=== PATIENT | male | born 1965 | race Caucasian/White ===

== ENCOUNTER 2018-10-31 22:11 | Emergency (ER) | payer SELFPAY ==
[~2018-10-31] VITALS: Ht 167.6 cm; Wt 125.0 kg
[2018-10-31 22:59] LABS: BASOPHILS # (AUTO) 0.1 X10'3 (0-0.2); BASOPHILS % (AUTO) 0.6 % (0-1); EOSINOPHILS # (AUTO) 0.1 X10'3 (0-0.9); EOSINOPHILS % (AUTO) 1.1 % (0-6); HEMATOCRIT 48.5 % (42.0-52.0); HEMOGLOBIN 17.1 g/dl (14.0-17.9); LYMPHOCYTES # (AUTO) 1.7 X10'3 (1.1-4.8); LYMPHOCYTES % (AUTO) 18.1 % (21-51); MEAN CORPUSCULAR HEMOGLOBIN 33.4 PG (27.0-31.0); MEAN CORPUSCULAR HGB CONC 35.3 g/dL (33.0-36.5); MEAN CORPUSCULAR VOLUME 94.6 FL (78-98); MEAN PLATELET VOLUME 8.5 FL (7.4-10.4); MONOCYTES # (AUTO) 0.9 X10'3 (0-0.9); MONOCYTES % (AUTO) 9.4 % (2-12); NEUTROPHILS # (AUTO) 6.8 X10'3 (1.8-7.7); NEUTROPHILS % (AUTO) 70.8 % (42-75); PLATELET COUNT 178 X10'3 (140-440); RED BLOOD COUNT 5.12 X10'6 (4.70-6.10); RED CELL DISTRIBUTION WIDTH 13.4 % (11.5-14.5); WHITE BLOOD COUNT 9.6 X10'3 (4.5-11.0)
[2018-10-31 23:15] LABS: ALANINE AMINOTRANSFERASE 41 U/L (12-78); ALBUMIN 3.6 G/DL (3.4-5.0); ALKALINE PHOSPHATASE 54 IU/L (46-116); ANION GAP 9 (8-16); ASPARTATE AMINO TRANSFERASE 22 U/L (10-37); BILIRUBIN,TOTAL 0.8 MG/DL (0.1-1.0); BLOOD UREA NITROGEN 13 MG/DL (7-18); BUN/CREATININE RATIO 13.8 (5.4-32.0); CALCIUM 9.2 MG/DL (8.5-10.1); CHLORIDE 105 MMOL/L (99-107); CREATININE 0.94 MG/DL (0.60-1.10); GLUCOSE 97 MG/DL (70-104); POTASSIUM 3.9 MMOL/L (3.5-5.1); SODIUM 140 MMOL/L (135-145); TOTAL CARBON DIOXIDE 26.5 MMOL/L (24-32); TOTAL PROTEIN 7.1 G/DL (6.4-8.2); eGFR 83 ML/MIN
--- NOTE | 2018-10-31 23:26 | NUR ---
No number on file to follow up with Pt. Dr. Rasmussen informed.
[2018-11-01] MEDS ORDERED: acetaminophen 325mg tablet PO ONE (01:15)
[2018-11-01] MEDS ORDERED: ketorolac trometh inj. 60 MG/2 ML VIAL IM ONE (01:15)
[2018-11-01 01:29] LABS: LIPASE 141 U/L (73-393)
[2018-11-01 01:43] VITALS: BP 145/80
[2018-11-01 02:03] LABS: CLARITY,URINE CLEAR (Clear); COLOR,URINE YELLOW (Yellow); GLUCOSE, URINE NEGATIVE (Neg); KETONES,URINE 40 mg/dl (Neg); LEUKOCYTE ESTERASE ,URINE NEGATIVE (Neg); NITRITES, URINE NEGATIVE (Neg); OCCULT BLOOD,URINE TRACE-INTACT (Neg); PROTEIN,URINE NEGATIVE (Neg); UROBILINOGEN,URINE 0.2 E.U/dL (0.2-1.0)
[2018-11-01 02:05] LABS: UA COLLECTION TYPE VOIDED
[2018-11-01 02:11] LABS: BACTERIA,URINE NONE SEEN /HPF (Neg); RBC,URINE 0-2 /HPF (0-2); SQUAMOUS EPITHELIAL CELL,UR FEW /LPF (FEW); WBC,URINE NONE SEEN /HPF (0-4)
== END 2018-11-01 02:40 | disposition home or self-care (01) ==
LOC: ER 22:12
DX: R10.32 Left lower quadrant pain (principal); R19.7 Diarrhea, unspecified; Z87.442 Personal history of urinary calculi
CPT/HCPCS: 36415; 80053; 81001; 83690; 85025; 85610; 96372; 99283; J1885

== ENCOUNTER 2018-11-04 10:36 | Inpatient (IN) | payer SELFPAY ==
[~2018-11-04] VITALS: Ht 167.6 cm; Wt 125.0 kg
[2018-11-04] MEDS ORDERED: ondansetron/PF 4mg/2ml inj IV ONE (10:40)
[2018-11-04] MEDS ORDERED: normal saline 1000ML IV soln IVB ONE (10:40)
[2018-11-04] MEDS: morphine 4 MG/ML inj SYRINge IV PRN ×2 (11:35→12:06)
[2018-11-04 11:52] LABS: ALANINE AMINOTRANSFERASE 35 U/L (12-78); ALBUMIN/GLOBULIN RATIO 0.6 (1.1-1.5); ALKALINE PHOSPHATASE 59 IU/L (46-116); ANION GAP 11 (8-16); ASPARTATE AMINO TRANSFERASE 15 U/L (10-37); BILIRUBIN,TOTAL 1.1 MG/DL (0.1-1.0); BLOOD UREA NITROGEN 10 MG/DL (7-18); BUN/CREATININE RATIO 11.4 (5.4-32.0); CALCIUM 9.1 MG/DL (8.5-10.1); CHLORIDE 102 MMOL/L (99-107); CREATININE 0.88 MG/DL (0.60-1.10); GLUCOSE 121 MG/DL (70-104); LIPASE 67 U/L (73-393); POTASSIUM 3.8 MMOL/L (3.5-5.1); SODIUM 141 MMOL/L (135-145); TOTAL CARBON DIOXIDE 27.9 MMOL/L (24-32); TOTAL PROTEIN 7.7 G/DL (6.4-8.2); eGFR 90 ML/MIN
[2018-11-04 12:01] LABS: BASOPHILS % (AUTO) 0.3 % (0-1); EOSINOPHILS # (AUTO) 0.1 X10'3 (0-0.9); EOSINOPHILS % (AUTO) 0.6 % (0-6); HEMATOCRIT 47.4 % (42.0-52.0); HEMOGLOBIN 16.7 g/dl (14.0-17.9); LYMPHOCYTES # (AUTO) 0.9 X10'3 (1.1-4.8); LYMPHOCYTES % (AUTO) 10.6 % (21-51); MEAN CORPUSCULAR HEMOGLOBIN 33.5 PG (27.0-31.0); MEAN CORPUSCULAR HGB CONC 35.2 g/dL (33.0-36.5); MEAN CORPUSCULAR VOLUME 95.2 FL (78-98); MEAN PLATELET VOLUME 8.5 FL (7.4-10.4); MONOCYTES # (AUTO) 0.6 X10'3 (0-0.9); MONOCYTES % (AUTO) 6.5 % (2-12); NEUTROPHILS # (AUTO) 7.3 X10'3 (1.8-7.7); PLATELET COUNT 208 X10'3 (140-440); RED BLOOD COUNT 4.98 X10'6 (4.70-6.10); WHITE BLOOD COUNT 8.9 X10'3 (4.5-11.0)
[2018-11-04] MEDS ORDERED: piperacillin/tazo 3.375gm/50ml 50 ML IV ONE (12:30)
--- NOTE | 2018-11-04 12:35 | NUR ---
PROVIDER AT BEDSIDE, DISCUSSING OPTIONS WITH PT
--- NOTE | 2018-11-04 13:01 | NUR ---
HOSPITALIST AT BEDSIDE
[2018-11-04 14:10] LABS: CLARITY,URINE CLEAR (Clear); COLOR,URINE YELLOW (Yellow); GLUCOSE, URINE NEGATIVE (Neg); KETONES,URINE >=80 mg/dl (Neg); LEUKOCYTE ESTERASE ,URINE NEGATIVE (Neg); NITRITES, URINE NEGATIVE (Neg); OCCULT BLOOD,URINE MODERATE (Neg); PH,URINE 5.5 (4.8-8.0); PROTEIN,URINE 100 mg/dl (Neg); UROBILINOGEN,URINE 0.2 E.U/dL (0.2-1.0)
[2018-11-04 14:12] LABS: UA COLLECTION TYPE CLN CATCH MIDSTREAM
[2018-11-04] MEDS ORDERED: magnesium 4gm in 100ml NS 100 ML IV PRN (14:35)
[2018-11-04] MEDS: K and/or MAG REPLACEMENT MC SCH (14:35)
[2018-11-04] MEDS ORDERED: HYDROcodone/acetaminophen 5mg/325mg tablet PO PRN (14:35)
[2018-11-04] MEDS ORDERED: mag hydrox/Alum hydrox/simeth 30ml oral suspension PO PRN (14:35)
[2018-11-04] MEDS ORDERED: potassium Cl 20 mEq SR tablet PO PRN ×2 (14:35)
[2018-11-04] MEDS ORDERED: diphenhydrAMINE 25mg capsule PO PRN (14:35)
[2018-11-04] MEDS ORDERED: morphine 2 MG/ML inj. syringe IV PRN (14:35)
[2018-11-04] MEDS ORDERED: magnesium 2GM in 50ml NS 50 ML IV PRN (14:35)
[2018-11-04] MEDS ORDERED: potassium CL 10mEq/100ml bag 100 ML IV PRN ×2 (14:35)
[2018-11-04] MEDS ORDERED: acetaminophen 325mg tablet PO PRN (14:35)
[2018-11-04] MEDS ORDERED: magnesium Cl slow-release 64mg tablet PO PRN (14:35)
[2018-11-04] MEDS ORDERED: magnesium hydroxide 30ml (MOM) UD suspension PO PRN (14:35)
[2018-11-04] MEDS ORDERED: ondansetron/PF 4mg/2ml inj IV PRN (14:35)
[2018-11-04 14:36] LABS: MUCUS STRANDS MANY /LPF (Neg)
[2018-11-04 14:37] LABS: COARSE GRANULAR CAST 0-3 /LPF (NEGATIVE); SQUAMOUS EPITHELIAL CELL,UR FEW /LPF (FEW)
[2018-11-04 14:38] LABS: AMORPHOUS URATES 1+
[2018-11-04 14:53] LABS: BACTERIA,URINE 1+ /HPF (Neg); RBC,URINE 0-2 /HPF (0-2); WBC,URINE 0-4 /HPF (0-4)
[2018-11-04] MEDS: normal saline 1000ml 1,000 ML IV SCH (15:00)
[2018-11-04 15:26] LABS: HEMOGLOBIN A1C 4.9 % (4.5-6.2)
[2018-11-04] MEDS ORDERED: fentaNYL/PF 50MCG/1 ML 2ML syringe ONE (15:43)
--- NOTE | 2018-11-04 15:55 | NUR ---
PATIENT TO ANGIO.
[2018-11-04 15:58] VITALS: BP 147/73
[2018-11-04 16:03] VITALS: BP 150/79
[2018-11-04 16:08] VITALS: BP 151/79
[2018-11-04 16:13] VITALS: BP 149/79
[2018-11-04 16:18] VITALS: BP 109/89
--- NOTE | 2018-11-04 16:34 | NUR ---
PATIENT BACK TO BED 7,LESLIE DRAIN TO LEFT ABDOMEN,WAS GIVEN FENTANYL 50MCG.
[2018-11-04] MEDS: piperacillin/tazo 3.375gm/50ml 50 ML IV SCH ×2 (16:44→23:17)
[2018-11-04] MEDS ORDERED: NO HOME MEDS (16:50)
--- NOTE | 2018-11-04 17:40 | NUR ---
paged Dr. Cross,patient tachy 120's,pt denies chest pain,sumeet drain intact,no noted output from the drain.
--- NOTE | 2018-11-04 17:54 | NUR ---
ekg done,sinus tachy,dr. leos read result.
[2018-11-04 19:00] VITALS: BP 137/97
[2018-11-04] MEDS: morphine 2 MG/ML inj. syringe IV PRN (19:52)
--- NOTE | 2018-11-04 20:58 | NUR ---
[place] [phone] Yoni [phone] only two number pt can recall. pt is concerned and a worked up about not getting ahold of family. called both numbers and no response. will continue to monitor.
[2018-11-04] MEDS ORDERED: temazepam 15mg capsule PO PRN (21:00)
[2018-11-05] VITALS: BP 118/71
[2018-11-05] MEDS: normal saline 1000ml 1,000 ML IV SCH ×3 (04:13→15:25)
[2018-11-05 06:08] LABS: BASOPHILS % (AUTO) 0.2 % (0-1); EOSINOPHILS % (AUTO) 0.2 % (0-6); HEMATOCRIT 41.2 % (42.0-52.0); HEMOGLOBIN 14.3 g/dl (14.0-17.9); LYMPHOCYTES # (AUTO) 1.5 X10'3 (1.1-4.8); MEAN CORPUSCULAR HEMOGLOBIN 33.1 PG (27.0-31.0); MEAN CORPUSCULAR HGB CONC 34.8 g/dL (33.0-36.5); MEAN CORPUSCULAR VOLUME 95.2 FL (78-98); MEAN PLATELET VOLUME 8.5 FL (7.4-10.4); MONOCYTES # (AUTO) 0.9 X10'3 (0-0.9); NEUTROPHILS # (AUTO) 8.9 X10'3 (1.8-7.7); NEUTROPHILS % (AUTO) 78.6 % (42-75); PLATELET COUNT 215 X10'3 (140-440); RED BLOOD COUNT 4.32 X10'6 (4.70-6.10); RED CELL DISTRIBUTION WIDTH 13.2 % (11.5-14.5); WHITE BLOOD COUNT 11.3 X10'3 (4.5-11.0)
--- NOTE | 2018-11-05 06:10 | NUR ---
Problems reprioritized. Patient report given, questions answered & plan of care reviewed with Sandra LIEBERMAN.
[2018-11-05 06:40] LABS: ALANINE AMINOTRANSFERASE 29 U/L (12-78); ALBUMIN 2.4 G/DL (3.4-5.0); ALBUMIN/GLOBULIN RATIO 0.6 (1.1-1.5); ALKALINE PHOSPHATASE 52 IU/L (46-116); ANION GAP 8 (8-16); ASPARTATE AMINO TRANSFERASE 14 U/L (10-37); BILIRUBIN,TOTAL 1.3 MG/DL (0.1-1.0); BLOOD UREA NITROGEN 12 MG/DL (7-18); BUN/CREATININE RATIO 12.9 (5.4-32.0); CALCIUM 8.3 MG/DL (8.5-10.1); CHLORIDE 105 MMOL/L (99-107); CHOL/HDL RATIO 9.9 (0.00-4.99); CHOLESTEROL 109 MG/DL (0-200); CREATININE 0.93 MG/DL (0.60-1.10); GLUCOSE 110 MG/DL (70-104); HDL CHOLESTEROL 11 MG/DL (35-60); LDL CHOLESTEROL 74 MG/DL (50-100); PHOSPHORUS 2.6 MG/DL (2.3-4.5); POTASSIUM 4.2 MMOL/L (3.5-5.1); SODIUM 141 MMOL/L (135-145); TOTAL CARBON DIOXIDE 27.7 MMOL/L (24-32); TOTAL PROTEIN 6.7 G/DL (6.4-8.2); TRIGLYCERIDES 86 MG/DL (20-135); eGFR 84 ML/MIN
[2018-11-05 07:00] VITALS: BP 92/62
[2018-11-05] MEDS: K and/or MAG REPLACEMENT MC SCH (08:00)
[2018-11-05] MEDS: piperacillin/tazo 3.375gm/50ml 50 ML IV SCH ×2 (09:30→15:25)
[2018-11-05 11:00] VITALS: BP 116/73
[2018-11-05] MEDS: HYDROcodone/acetaminophen 10/325mg tab PO PRN (11:07)
[2018-11-05] MEDS: bismuth subsalicylate 262mg/15ml oral suspension PO PRN ×2 (12:53→21:07)
--- NOTE | 2018-11-05 12:54 | NUR ---
Pt only wants 1 cup of pepto bismol. Only gave 15ml instead of 30
[2018-11-05] MEDS: morphine 2 MG/ML inj. syringe IV PRN (15:29)
--- NOTE | 2018-11-05 18:20 | NUR ---
Problems reprioritized. Patient report given, questions answered & plan of care reviewed with Pat RN.
[2018-11-05 19:30] VITALS: BP 138/73
[2018-11-05] MEDS: lactobacillus rhamnosus 10,000 MMU CELLS/CAPSULE PO SCH (21:06)
[2018-11-05] MEDS: diatr meglu/diatrizoate 30ml oral sol.-(3 dose) bottle PO SCH (21:10)
[2018-11-06] VITALS: BP 140/82
[2018-11-06] MEDS: piperacillin/tazo 3.375gm/50ml 50 ML IV SCH ×4 (00:05→23:26)
[2018-11-06] MEDS: normal saline 1000ml 1,000 ML IV SCH ×2 (02:59→16:17)
[2018-11-06] MEDS: morphine 2 MG/ML inj. syringe IV PRN ×2 (04:05→23:21)
[2018-11-06 06:17] LABS: BASOPHILS % (AUTO) 0.3 % (0-1); EOSINOPHILS % (AUTO) 0.2 % (0-6); HEMATOCRIT 38.5 % (42.0-52.0); HEMOGLOBIN 13.4 g/dl (14.0-17.9); LYMPHOCYTES # (AUTO) 0.9 X10'3 (1.1-4.8); MEAN CORPUSCULAR HEMOGLOBIN 33.6 PG (27.0-31.0); MEAN CORPUSCULAR HGB CONC 34.9 g/dL (33.0-36.5); MEAN CORPUSCULAR VOLUME 96.4 FL (78-98); MEAN PLATELET VOLUME 8.4 FL (7.4-10.4); MONOCYTES # (AUTO) 0.9 X10'3 (0-0.9); MONOCYTES % (AUTO) 8.5 % (2-12); PLATELET COUNT 204 X10'3 (140-440); RED BLOOD COUNT 3.99 X10'6 (4.70-6.10); RED CELL DISTRIBUTION WIDTH 13.4 % (11.5-14.5); WHITE BLOOD COUNT 10.9 X10'3 (4.5-11.0)
[2018-11-06 06:37] LABS: ALANINE AMINOTRANSFERASE 26 U/L (12-78); ALBUMIN 2.3 G/DL (3.4-5.0); ALBUMIN/GLOBULIN RATIO 0.6 (1.1-1.5); ALKALINE PHOSPHATASE 49 IU/L (46-116); ANION GAP 10 (8-16); ASPARTATE AMINO TRANSFERASE 16 U/L (10-37); BILIRUBIN,TOTAL 1.2 MG/DL (0.1-1.0); CALCIUM 8.2 MG/DL (8.5-10.1); CHLORIDE 105 MMOL/L (99-107); CREATININE 0.85 MG/DL (0.60-1.10); GLUCOSE 112 MG/DL (70-104); MAGNESIUM 2.1 MG/DL (1.5-2.4); PHOSPHORUS 2.2 MG/DL (2.3-4.5); POTASSIUM 3.4 MMOL/L (3.5-5.1); SODIUM 140 MMOL/L (135-145); TOTAL CARBON DIOXIDE 25.3 MMOL/L (24-32); TOTAL PROTEIN 6.4 G/DL (6.4-8.2); eGFR > 90 ML/MIN
[2018-11-06 06:53] LABS: BLOOD UREA NITROGEN 12 MG/DL (7-18); BUN/CREATININE RATIO 14.1 (5.4-32.0)
[2018-11-06] MEDS: diatr meglu/diatrizoate 30ml oral sol.-(3 dose) bottle PO SCH ×3 (07:29→16:08)
[2018-11-06] MEDS: K and/or MAG REPLACEMENT MC SCH (08:00)
[2018-11-06] MEDS: lactobacillus rhamnosus 10,000 MMU CELLS/CAPSULE PO SCH ×2 (08:00→20:54)
--- NOTE | 2018-11-06 11:36 | NUR ---
Off the unit to CT. IV DMITRI.
[2018-11-06 12:00] VITALS: BP 128/89
[2018-11-06] MEDS: HYDROcodone/acetaminophen 10/325mg tab PO PRN (16:15)
--- NOTE | 2018-11-06 18:29 | NUR ---
Problems reprioritized. Patient report given, questions answered & plan of care reviewed with Irish LIEBERMAN.
--- NOTE | 2018-11-06 18:45 | NUR ---
Patient in room [facility] 357. I have received report from Monica LIEBERMAN and had the opportunity to ask questions and assume patient care.
[2018-11-06 20:00] VITALS: BP 110/67
[2018-11-06] MEDS: bismuth subsalicylate 262mg/15ml oral suspension PO PRN (23:20)
[2018-11-07] VITALS: BP 117/76
[2018-11-07] MEDS: normal saline 1000ml 1,000 ML IV SCH (02:50)
[2018-11-07 06:23] LABS: BASOPHILS % (AUTO) 0.4 % (0-1); EOSINOPHILS # (AUTO) 0.1 X10'3 (0-0.9); EOSINOPHILS % (AUTO) 0.9 % (0-6); HEMATOCRIT 40.9 % (42.0-52.0); HEMOGLOBIN 14.1 g/dl (14.0-17.9); LYMPHOCYTES # (AUTO) 1.1 X10'3 (1.1-4.8); LYMPHOCYTES % (AUTO) 10.2 % (21-51); MEAN CORPUSCULAR HEMOGLOBIN 33.3 PG (27.0-31.0); MEAN CORPUSCULAR HGB CONC 34.6 g/dL (33.0-36.5); MEAN CORPUSCULAR VOLUME 96.3 FL (78-98); MEAN PLATELET VOLUME 8.3 FL (7.4-10.4); MONOCYTES # (AUTO) 0.9 X10'3 (0-0.9); MONOCYTES % (AUTO) 8.9 % (2-12); NEUTROPHILS # (AUTO) 8.4 X10'3 (1.8-7.7); NEUTROPHILS % (AUTO) 79.6 % (42-75); PLATELET COUNT 258 X10'3 (140-440); RED BLOOD COUNT 4.24 X10'6 (4.70-6.10); RED CELL DISTRIBUTION WIDTH 13.6 % (11.5-14.5); WHITE BLOOD COUNT 10.6 X10'3 (4.5-11.0)
--- NOTE | 2018-11-07 06:29 | NUR ---
Problems reprioritized. Patient report given, questions answered & plan of care reviewed with Monica LIEBERMAN.
[2018-11-07 06:35] LABS: ALANINE AMINOTRANSFERASE 28 U/L (12-78); ALBUMIN 2.3 G/DL (3.4-5.0); ALBUMIN/GLOBULIN RATIO 0.5 (1.1-1.5); ALKALINE PHOSPHATASE 59 IU/L (46-116); ANION GAP 8 (8-16); ASPARTATE AMINO TRANSFERASE 16 U/L (10-37); BILIRUBIN,TOTAL 1.2 MG/DL (0.1-1.0); BLOOD UREA NITROGEN 7 MG/DL (7-18); BUN/CREATININE RATIO 7.9 (5.4-32.0); CALCIUM 8.4 MG/DL (8.5-10.1); CHLORIDE 105 MMOL/L (99-107); CREATININE 0.89 MG/DL (0.60-1.10); GLUCOSE 100 MG/DL (70-104); MAGNESIUM 1.9 MG/DL (1.5-2.4); PHOSPHORUS 2.3 MG/DL (2.3-4.5); POTASSIUM 3.4 MMOL/L (3.5-5.1); SODIUM 142 MMOL/L (135-145); TOTAL CARBON DIOXIDE 29.4 MMOL/L (24-32); TOTAL PROTEIN 6.8 G/DL (6.4-8.2); eGFR 89 ML/MIN
[2018-11-07] MEDS: K and/or MAG REPLACEMENT MC SCH (07:39)
[2018-11-07] MEDS: lactobacillus rhamnosus 10,000 MMU CELLS/CAPSULE PO SCH ×2 (07:39→19:45)
[2018-11-07] MEDS: piperacillin/tazo 3.375gm/50ml 50 ML IV SCH ×3 (07:39→23:12)
[2018-11-07] MEDS: morphine 2 MG/ML inj. syringe IV PRN ×2 (07:39→15:52)
[2018-11-07 08:00] VITALS: BP 106/65
--- NOTE | 2018-11-07 10:00 | NUR ---
[facility] downtime charting
[2018-11-07 11:00] VITALS: BP 125/66
[2018-11-07] MEDS: potassium Cl 20mEq in NS 1,000 ML IV SCH ×2 (12:43→23:12)
[2018-11-07 18:00] VITALS: BP 123/73
--- NOTE | 2018-11-07 18:05 | NUR ---
Patient in room [facility] 357. I have received report from Monica LIEBERMAN and had the opportunity to ask questions and assume patient care.
--- NOTE | 2018-11-07 18:07 | NUR ---
Problems reprioritized. Patient report given, questions answered & plan of care reviewed with Ruth LIEBERMAN.
[2018-11-07] MEDS: bismuth subsalicylate 262mg/15ml oral suspension PO PRN (19:46)
[2018-11-07] MEDS: acetaminophen 325mg tablet PO PRN (23:53)
[2018-11-08] VITALS: BP 121/71
--- NOTE | 2018-11-08 01:50 | NUR ---
pt upset about roommate and snoring and not getting any sleep during his hospital stay . pt insistent about going home today and will leave "with or without the drain and when it stops draining will come back to have it removed." He also does not want any more new bag of fluids to be hung including the antibiotics. He states "he doesn't need them and it is a bunch of bull" and going off about how the medical field and pharmaceutical industry is a scam. He states he can be given a prescription and doesn't need a bag. educated pt about antibiotics. will continue to monitor.
--- NOTE | 2018-11-08 04:17 | NUR ---
pt doesn't want aguilar to be hung. states he wants to talk with the doctor first. will let day shift nurse know and will continue to monitor.
--- NOTE | 2018-11-08 06:17 | NUR ---
Problems reprioritized. Patient report given, questions answered & plan of care reviewed with Phil RN.
--- NOTE | 2018-11-08 07:19 | NUR ---
Patient in room [facility] 357. I have received report from Ruth LIEBERMAN and had the opportunity to ask questions and assume patient care.
[2018-11-08 07:30] VITALS: BP 132/83
[2018-11-08] MEDS: potassium Cl 20mEq in NS 1,000 ML IV SCH ×2 (07:34→17:34)
[2018-11-08] MEDS: piperacillin/tazo 3.375gm/50ml 50 ML IV SCH ×2 (08:00→16:00)
[2018-11-08] MEDS: K and/or MAG REPLACEMENT MC SCH (08:00)
--- NOTE | 2018-11-08 08:00 | NUR ---
Patient refused IV and IV antibiotics, hospitalist notified
[2018-11-08] MEDS: lactobacillus rhamnosus 10,000 MMU CELLS/CAPSULE PO SCH (10:10)
[2018-11-08] MEDS: acetaminophen 325mg tablet PO PRN ×2 (10:11→17:04)
[2018-11-08 11:00] VITALS: BP 152/88
[2018-11-08] MEDS ORDERED: VANCOMYCIN LEVEL IV ONE (12:30)
--- NOTE | 2018-11-08 13:00 | NUR ---
Patient refused IV and anbiotic therapy, hospitalist notified
--- NOTE | 2018-11-08 13:32 | NUR ---
Primary RN Phil asked me to attempt IV start on patient. Went into patients room introduced myself and advised patient that Phil wanted me to start an IV on patient for antibiotics. Patient was pleasant but stated he does not want to shea into a new IV he would like to wait until 4pm and see if he gets a fever then decide if he would like to get antibiotics. Advised Phil primary RN
--- NOTE | 2018-11-08 16:45 | NUR ---
Patient satisfied with temperature of 98.2 and declined IV at this time
--- NOTE | 2018-11-08 18:30 | NUR ---
Problems reprioritized. Patient report given, questions answered & plan of care reviewed with Harriet LIEBERMAN.
--- NOTE | 2018-11-08 18:32 | NUR ---
Received report from MIO Villarreal. Patient is awake and alert on room air, in no apparent distress. Call light and items of frequent use within reach. Will continue to monitor.
[2018-11-08 19:30] VITALS: BP 143/93
--- NOTE | 2018-11-08 19:57 | NUR ---
Patient signed and left against medical advice because he did not get his dinner tray on time. Attempted to tell him that tray is on its way, he yelled saying "get the hell away from me or else you will get hurt. Move away from me! NOW." Security called. IV was already out since day shift. Unable to perform any assessment or treatment since patient completely refused all care. All belongings sent with patient. Patient walked out with a steady gait accompanied by his son and another woman.
[2018-11-09] MEDS ORDERED: VANCOMYCIN LEVEL IV ONE (12:30)
[2018-11-09] MEDS ORDERED: L. R1CAP4 PO (17:31)
[2018-11-09] MEDS ORDERED: METR-159 PO (17:31)
[2018-11-09] MEDS ORDERED: LINE600T11 PO (17:31)
== END 2018-11-08 19:55 | disposition left against medical advice (07) | DRG 392 ==
LOC: ER 10:37 → SUR 3N 19:07 → CMPBEDREQ 11-06 19:44
PROVIDERS: ADMIT Family Medicine; ATTEND Family Medicine
PROC: 0W9G30Z Drainage of Peritoneal Cavity with Drainage Device, Percutaneous Approach (ICD-10-PCS; principal; 2018-11-04)
PROC: BW211ZZ Computerized Tomography (CT Scan) of Abdomen and Pelvis using Low Osmolar Contrast (ICD-10-PCS; 2018-11-06)
DX: K57.20 Diverticulitis of large intestine with perforation and abscess without bleeding (principal); N39.0 Urinary tract infection, site not specified; K42.9 Umbilical hernia without obstruction or gangrene; K59.00 Constipation, unspecified; F12.90 Cannabis use, unspecified, uncomplicated; B96.20 Unspecified Escherichia coli [E. coli] as the cause of diseases classified elsewhere; B95.2 Enterococcus as the cause of diseases classified elsewhere; K21.9 Gastro-esophageal reflux disease without esophagitis; Z88.0 Allergy status to penicillin; Z88.6 Allergy status to analgesic agent; Z87.440 Personal history of urinary (tract) infections; Z87.442 Personal history of urinary calculi; Z91.19 Patient's noncompliance with other medical treatment and regimen
CPT/HCPCS: 10030; 36415; 74176; 74177; 80053; 80061; 80202; 81001; 83036; 83605; 83690; 83735; 84100; 84145; 85025; 86885; 86900; 86901; 87040; 87070; 87075; 87076; 87077; 87081; 87088; 87185; 87186; 93005; 96365; 96375; 99152; 99153; 99285; G0378; J2270; J2405; J2543; J3010; J3370; J3480; J7030; Q9963

== ENCOUNTER 2018-11-09 14:53 | Emergency (ER) | payer SELFPAY ==
[~2018-11-09] VITALS: Ht 167.6 cm; Wt 125.0 kg
[~2018-11-09 14:53] MED LIST: NO HOME MEDS
[2018-11-09 16:38] VITALS: BP 142/102
--- NOTE | 2018-11-09 16:38 | NUR ---
pt refuses to be re-admitted to hospital. stated he just wants antibiotics. tylenol works for pain. pain currently 0/10
[2018-11-09] MEDS ORDERED: METR-159 PO (17:31)
[2018-11-09] MEDS ORDERED: LINE600T11 PO (17:31)
[2018-11-09] MEDS ORDERED: L. R1CAP4 PO (17:31)
== END 2018-11-09 17:42 | disposition left against medical advice (07) ==
LOC: ER 14:54
DX: K57.92 Diverticulitis of intestine, part unspecified, without perforation or abscess without bleeding (principal); Z48.03 Encounter for change or removal of drains; F12.90 Cannabis use, unspecified, uncomplicated; Z88.5 Allergy status to narcotic agent; Z79.899 Other long term (current) drug therapy
CPT/HCPCS: 99283